=== PATIENT | female | born 1990 | race African-American/Black ===

== ENCOUNTER 2019-07-16 20:50 | Emergency (ER) | payer MEDICAID, SELFPAY ==
[2019-07-16 20:55] VITALS: BP 117/59; PULSE 74; RESP 22; TEMP 36.5; O2SAT 100
--- NOTE | 2019-07-16 21:22 | ED.FEMALEGU ---
HPI - Female Genitourinary General Chief complaint: RENAL NURSE Stated complaint: PREG, BLEEDING Time Seen by Provider: 07/16/19 21:13 Source: patient and RN notes reviewed Mode of arrival: ambulatory Limitations: no limitations History of Present Illness HPI Narrative: Pt is a 28 y/o female who is currently 12 weeks and G1, who presents to the ED with c/o vaginal bleeding starting several hours ago. She notes that she was evaluated by her [employer] yesterday, and states that she received an US which showed no heart tones or other signs of . Pt notes that she began having vaginal bleeding earlier this evening. She also reports lower ABD cramping, but denies any lightheadedness, LOC, dysuria, or other symptoms. MD elicited complaint: vaginal bleeding Onset (ago): hour(s) (several) Location of symptoms: vaginal Associated symptoms: abdominal pain (lower ABD cramping) Patient : Yes Related Data Home Medications Medication Instructions Recorded Confirmed No Home Medications 07/16/19 07/16/19 Allergies Allergy/AdvReac Type Severity Reaction Status Date / Time No Known Allergies Allergy Verified 07/16/19 21:13 Review of Systems Review of Systems: Narrative: CONSTITUTIONAL: Denies fever, chills, or sweats. GASTROINTESTINAL: Reports lower abdominal cramping. Denies nausea, vomiting, or diarrhea. GENITOURINARY: Denies dysuria or hematuria. Reports vaginal bleeding. NEUROLOGIC: Denies headache, lightheadedness, LOC, numbness, or weakness. All systems reviewed & are unremarkable except as noted in HPI and below PMFSH Past Medical History Medical History Healthy female Surgical History Surgical History No significant past surgical history Social History Social History Smoking status: Never smoker Substance use: never Gender identity (if verbalized by the patient): Female Exam Narrative: Exam Narrative: GENERAL: Well-appearing, well-nourished, and in no acute distress. HEAD: Normocephalic, atraumatic. EYES: PERRLA and EOMI. ENT: Nares clear, no rhinorrhea or epistaxis. Mucous membranes moist. NECK: Supple. CHEST: Clear to auscultation. No respiratory distress. HEART: Regular rate and rhythm. No murmur heard. Normal peripheral pulses. ABDOMEN: Soft, nontender, nondistended, normal active bowel sounds. RENAL NURSE/: Labia majora and minora normal without lesions. Vagina products of conception, + blood, no brisk bleeding. Os dilated to 2 cm. No cervical motion tenderness. No adnexal tenderness or fullness bilaterally. EXTREMITIES: Normal range of motion. No edema. SKIN: Warm, dry, no rash. NEURO: No focal deficits. Alert and oriented. Course Course Emergency Course: Presented for evaluation of vaginal bleeding in the setting of first trimester . Per patient, was seen by her [employer] today, had no cardiac motion on bedside ultrasound, was presented with watchful waiting versus scheduled D&C which patient wanted to speak with her significant other before making a decision. Patient presented this evening with vaginal bleeding. Patient is hemodynamically stable, no sign of severe blood loss. Not orthostatic positive. Pt not requiring rhogam. Pelvic exam notable for what is likely products of conception which were sent down to pathology. Patient was monitored in this emergency department for 2-1/2 hours, repeat hemoglobin and hematocrit is stable. I spoke with on-call [employer] Dr. Roth who is also familiar with the patient, who recommended the patient be seen in office tomorrow. Patient was given bleeding precautions and was discharged home in stable condition. Consultations Consultation #1: Discussed case with [employer]SULTANT, Dr. Roth. Reviewed type and screen. He saw the pt earlier today and is familiar with the pt. Advised that she should return tomorrow for reassessm
[2019-07-16 21:44] VITALS: BP 115/79; PULSE 57
[2019-07-16 21:45] VITALS: BP 119/76; PULSE 72
[2019-07-16 21:46] VITALS: BP 108/79; PULSE 69
[2019-07-16 21:47] LABS: Basophils Percent Auto 0.5 % (0.2-1.2); Eosinophils Absolute Auto 0.1 K/mm3 (0-0.3); Eosinophils Percent Auto 1.4 % (0-4.4); Hemoglobin 11.8 g/dL (12.0-15.0); Immature Granulocyte Absolute 0.01 K/mm3 (0.00-0.031); Immature Granulocyte Percent A 0.1 % (0-0.5); Lymphocytes Absolute Auto 2.51 K/mm3 (0.9-3.2); Mean Corpuscular HGB Conc 33.7 g/dl (32-36); Mean Corpuscular Hemoglobin 27.1 pg (26-34); Mean Corpuscular Volume 80.3 fl (80-100); Mean Platelet Volume 12.4 fl (7.4-10.4); Monocytes Absolute Auto 0.8 K/mm3 (0.1-0.6); Monocytes Percent Auto 10.3 % (2.6-8.5); Neutrophils Percent Auto 53.7 % (45.5-73.1); Platelet Count Result 227 k/mm3 (150-375); Red Blood Count 4.36 M/mm3 (4.2-5.4); Red Cell Distribution Width 13.3 % (11.5-14.5); White Blood Count 7.4 K/mm3 (4.5-10.0)
[2019-07-16 22:20] LABS: Add Urine Microscopic? YES; Amorphous Sediment Urine Moderate; Appearance Urine Cloudy (Clear); Bacteria Urine Trace /hpf; Bilirubin Urine Negative (Negative); Blood Urine 2+ (Negative); Color Urine Yellow (Yellow); Glucose Urine UA Negative (Negative); Ketones Urine Negative (Negative); Leukocyte Esterase Ur Negative LEU/UL (Negative); Mucus Urine Rare /lpf; Nitrate Urine Negative (Negative); Protein Urine Negative (Negative); RBC Urine 21-50 /hpf (0-2); Specific Grav Ur 1.012 (1.001-1.035); Urobilinogen Urine Negative mg/dL (<2.0); WBC Urine 0-3 /hpf
[2019-07-16 23:14] LABS: Hematocrit 34.1 % (37.0-47.0); Hemoglobin 11.5 g/dL (12.0-15.0)
[2019-07-17 00:25] VITALS: BP 115/73; PULSE 75; RESP 16; O2SAT 100
== END 2019-07-17 00:20 | disposition home or self-care (01) ==
PROVIDERS: Emergency Provider Emergency Medicine
DX: O03.4 Incomplete spontaneous abortion without complication (principal)
CPT/HCPCS: 36415; 81001; 84702; 85014; 85018; 85025; 86900; 86901; 88305; 99284

== ENCOUNTER 2019-07-19 01:14 | Day surgery (SDC) | payer MEDICAID, SELFPAY ==
[2019-07-17 11:33] VITALS: BMI 21.9
[2019-07-19] VITALS (7 sets, daily range): BP systolic 82–126; BP diastolic 42–93; PULSE 49–67; RESP 16–18; TEMP 36.7; O2SAT 99–100
--- NOTE | 2019-07-19 07:03 | P.HP_ITS ---
H&P: HPI History of Present Illness Chief complaint: Missed AB Narrative: Lior Martinez is a 28 year old female Who is admitted for suction dilatation curettage secondary to incomplete AB. She has been bleeding actively and cramping and discomfort. Ultrasound proves an abnormal Review of Systems Review of Systems: All systems reviewed & are unremarkable except as noted in HPI and below PMFSH Past Medical History Medical History Healthy female Surgical History Surgical History No significant past surgical history Social History Social History Smoking status: Never smoker Substance use: never Gender identity (if verbalized by the patient): Female Meds Home Medications and Allergies Home Medications Medication Instructions Recorded Confirmed Type hydrocodone-acetaminophen [[place]] 1 tablet PO Q4H PRN #20 tablet 07/19/19 Rx Allergies Allergy/AdvReac Type Severity Reaction Status Date / Time No Known Allergies Allergy Verified 07/17/19 11:36 Exam Const: General: no acute distress Eyes: General: appearance normal, both eyes and all related structures Neck: Neck: supple and no JVD Thyroid: thyroid normal Resp: Effort & Inspection: normal respiratory effort Auscultation: clear to auscultation bilaterally Cardio: Rate: regular rate Rhythm: regular rhythm GI: Inspection: non-distended GI Palp: Yes Soft to palpation, No Tenderness to palpation present (GI) and No Guarding due to palpation present (GI) Auscultation: normal bowel sounds : General: Yes other (Bleeding is seen from the cervix.) External Female Exam: normal external appearance Skin: General skin exam: no rashes or lesions noted Extrem: General: normal to inspection and no edema Psych: Mental Status: mental status grossly normal Affect: normal affect Assessment and Plan Additional Plan Impression: Incomplete AB 1st trimester Plan suction dilatation and curettage
--- NOTE | 2019-07-19 10:47 | WPDANESEPPF ---
Anes - Initial Pre Proc Eval Procedure: Operation Date: 07/19/19 13:15 Proposed Procedures p Suction Dilation And Curettage - Lester Glover MD Date/Time: 07/19/19 10:47 Surgeon: Lester Glover MD Pre Op Diagnosis: Missed AB Patient Data Age: 28 Gender: F Height: 1.68 m Weight: 61.69 kg Allergies Allergy/AdvReac Type Severity Reaction Status Date / Time No Known Allergies Allergy Verified 07/17/19 11:36 Home Medications Medication Instructions Recorded Confirmed Type hydrocodone-acetaminophen [[place]] 1 tablet PO Q4H PRN #20 tablet 07/19/19 Rx Patient hx anesthesia problems: none Family hx anesthesia problems: none PMFSH Past Medical History Medical History Healthy female Surgical History Surgical History No significant past surgical history Social History Social History Smoking status: Never smoker Substance use: never Gender identity (if verbalized by the patient): Female Anes - Eval Final PreProcedure Day of Procedure 07/19/19 10:47 Patient weight: normal Heart: regular rate and rhythm Lungs: clear to auscultation and normal air movement Airway: Mallampati scale class II Neurological: alert and oriented Last oral intake: >/= 8 hours ASA classification: I Emergent: no Anesthetic plan: proceed Anesthesia type and monitoring: general GIVS Informed Consent: The patient's anesthetic plan and its attendant risks and benefits were discussed with the patient/family/POA. Questions were solicited and answers provided to the satisfaction of the patient/family/POA.
[2019-07-19] MEDS: LACTATED RINGERS 1,000 ML 30 ML IV CONT (12:30)
[2019-07-19] MEDS: IBUPROFEN IV 800 MG/200 ML 800 MG/200 ML BAG 400 MG IVPB (12:59)
--- NOTE | 2019-07-19 13:17 | PM.PROC ---
Procedure Note - Detailed Date of procedure: 07/19/19 Pre-op diagnosis: Missed AB Surgeon: Lester Glover MD Postop diagnosis: Missed AB Anesthesia: IV sedation local EBL: 25cc Complications: None Procedure: Suction dilatation curettage Findings: Part of conception Description of procedure: Patient's from draped in normal sterile fashion placed in the dorsal lithotomy position. Under excellent IV sedation weighted speculum was placed and was were fornix of vagina. Anterior lip of the cervix was grasped with a single-tooth tenaculum. To ask cc 1% xylocaine anesthesia then placed at 2:48 a.m. 10:00 a.m. respectively of the cervix. Uterus sounded to 8cm. Serial dilatation with fragmented dilators performed. This was followed by passes the 8. Suction curette removing a very minimal amount of tissue. When no further tissue could be removed to good grating sound was heard. The instruments removed. The patient was awakened. All sponge, needle, instrument counts were correct. Blood loss was estimated at25cc
--- NOTE | 2019-07-19 14:22 | SUR.PHASEII ---
FRIEND JIMY CALLED TO SIT WITH PT.
== END 2019-07-19 15:30 | disposition home or self-care (01) ==
PROVIDERS: Visit Provider Obstetrics & Gynecology
PROC: (CPT 59820; principal; 2019-07-19 13:15)
DX: O02.1 Missed abortion (principal)
CPT/HCPCS: 59820; 88305; A9270; J1100; J1741; J2250; J2405; J2704; J3010; J7120